=== PATIENT | male | born 1970 | race Caucasian/White ===

== ENCOUNTER 2016-12-03 18:03 | Emergency (ER) | payer MEDICAID ==
[2016-12-03 19:00] LABS: BASOPHILS 0.5 % (0.0-2.0); EOSINOPHILS 3.8 % (0-7); HEMATOCRIT 45.6 % (42.0-54.0); HEMOGLOBIN 15.9 g/dL (13.5-17.5); IMMATURE GRANULOCYTES 0.4 % (0-5); LYMPHOCYTES 30.5 % (15-50); MCH 32.2 pg (26.0-34.0); MCHC 34.9 g/dL (31.0-37.0); MCV 92.3 fL (80.0-100.0); MEAN PLATELET VOLUME 9.7 fL (7.4-10.4); NEUTROPHILS 57.8 % (40-80); PLATELET COUNT 232 10x3/uL (130-400); RBC 4.94 10x6/uL (4.20-6.10); RDW 12.4 % (11.5-14.5); WBC 10.6 10x3/uL (4.8-10.8)
[2016-12-03 19:14] LABS: ALBUMIN 4.4 g/dL (3.4-5.0); ALKALINE PHOSPHATASE 65 U/L (46-116); ALT (SGPT) 52 U/L (10-68); BILIRUBIN - TOTAL 0.53 mg/dL (0.2-1.3); CALC OSMOLALITY 275 mosm/kg (275-300); CALCIUM 9.4 mg/dL (8.5-10.1); CARBON DIOXIDE 30.1 mmol/L (21.0-32.0); CHLORIDE - SERUM 100 mmol/L (98-107); CREATININE - SERUM 1.1 mg/dL (0.6-1.3); GLUCOSE 119 mg/dL (74-106); POTASSIUM - SERUM 4.1 mmol/L (3.5-5.1); SODIUM 138 mmol/L (136-145); UREA NITROGEN 10 mg/dL (7-18); eGFR NON AFRICAN AMERICAN 77 mL/min (90-120)
[2016-12-03 19:56] LABS: CKMB 1.4 U/L (0.0-3.6); CREATINE KINASE 133 UL (21-232); TROPONIN-I < 0.017 ng/mL (0.000-0.060)
[2016-12-03 20:51] LABS: APPEARANCE CLEAR (CLEAR); BILIRUBIN NEGATIVE (NEGATIVE); COLOR YELLOW (YELLOW); GLUCOSE NEGATIVE (NEGATIVE); KETONE NEGATIVE (NEGATIVE); LEUKOCYTE ESTERASE NEGATIVE (NEGATIVE); NITRITE NEGATIVE (NEGATIVE); PROTEIN NEGATIVE (NEGATIVE); UROBILINOGEN NORMAL (NORMAL)
[2016-12-15 11:38] VITALS: BMI 40.2
== END 2016-12-03 21:16 | disposition home or self-care (01) ==
LOC: D.ER 18:03
PROVIDERS: Family Medicine; Nurse Practitioner Family
DX: R42 Dizziness and giddiness (principal); R07.9 Chest pain, unspecified; I10 Essential (primary) hypertension; I45.10 Unspecified right bundle-branch block

== ENCOUNTER 2016-12-15 11:01 | Outpatient (CLI) | payer MEDICAID ==
[~2016-12-15] VITALS: Ht 180.3 cm; Wt 130.9 kg
--- NOTE | ~2016-12-15 | HEMODYNAMI ---
PATIENT:JANICE MENDEZ MEDICAL RECORD: [id number] : 72 LOCATION:[facility] ADMISSION DATE: 12/15/16 Generatedon:12/15/201615:14 Patient name: JANICE MENDEZ Patient #: [id number] SSN: : 1970 Date of study: 12/15/2016 Page: Of Hemodynamic Procedure Report Patient Data Patient Demographics Procedure consent was obtained First Name: JANICE Gender: Male Last Name: VANESSA : 1970 Middle Initial: W Age: 46 year(s) Patient #: [id number] Race: Unknown Additional ID: [id number] Contact details [address]: [address] [place] [address] [address] State: [place] City: [place] Zip code: [address] Past Medical History Allergies: No known allergies Admission Admission Data Admission Date: 12/15/2016 Admission Time: 11:01 Lab Results Lab Result Date: 12/15/2016 Lab Result Time: 11:30 Biochemistry Name Units Result Min Max BUN mg/dl 9 --(*---)-- 7 18 Creatinine mg/dl 1 --(--*-)-- 0.6 1.3 CBC Name Units Result Min Max Hematocrit % 46.9 --(-*--)-- 42 54 Hemoglobin g/dl 16.7 --(---*)-- 13.5 17.5 Procedure Procedure Types Cath Procedure Diagnostic Procedure [facility] w/Coronaries Miscellaneous Procedures Moderate Sedation up to 30 minutes Peripheral Cath Diagnostic Procedure 4-Vessel Carotid Cervical Bilateral Procedure Description Procedure Date Procedure Date: 12/15/2016 Procedure Start Time: 14:52 Procedure End Time: 15:12 Procedure Staff Name Function Carl Johnson MD Performing Physician Emily Saldivar RT Scrub Raffi Leonardo RN Nurse test Nurse Willis Schmidt RT Monitor Procedure Data Cath Procedure Fluoroscopy Diagnostic fluoroscopy Total fluoroscopy Time: 4.4 time: 4.4 min min Diagnostic fluoroscopy Total fluoroscopy dose: 557 dose: 557 mGy mGy Contrast Material Contrast Material Type Amount (ml) Isovue 300 101 Entry Location Entry Primary Successful Side Size Upsize Upsize Entry Closure Succes sful Closure Location (Fr) 1 (Fr) 2 (Fr) Remarks Device Remarks Femoral Right 5 Fr Exoseal artery Estimated blood loss: 5 ml Diagnostic catheters Device Type Used For End Catheter Placement Cordis 5Fr JL 4.0 Procedure Catheter (MP) Cordis 5Fr 3DRC Catheter Procedure (MP) Cordis 4Fr JB3 catheter Procedure Cordis 5Fr Pigtail Procedure Catheter (MP) Procedure Complications No complications Procedure Medications Medication Administration Route Dosage Oxygen NC 2 l/min Heparin Flush Bag added to field 2 bags (1000units/500ml NS) 0.9% NaCl I.V. 100 ml/hr Fentanyl I.V. 50 mcg Versed I.V. 1 mg Fentanyl I.V. 50 mcg Versed I.V. 1 mg Fentanyl I.V. 50 mcg Fentanyl I.V. 50 mcg Hemodynamics Rest HGB: 16.7 (g/dl) Heart Rate: 58 (bpm) Pressure Samples Time Site Value (mmHg) Purpose Heart Use Rate(bpm) 15:05 LV 106/14,19 Snapshot 72 15:05 AO 117/67(88) Pullback 67 15:05 LV 108/15,20 Pullback 67 Gradients Valve Time Site 1 Site 2 Mean SEP/DFP Peak To Heart Use (mmHg) (sec/min) Peak Rate (mmHg) (bpm) Aortic 15:05 LV AO 0 15 0 67 108/15,20 117/67(88) Calculations Valve P-P Mean Valve Index Valve Source Name Gradient Area Flow (cm2) Aortic 0 0 0 0 Snapshots Pre Cath Intra NCS Post Cath Vital Signs Time Heart Resp SPO2 etCO2 OV5xior NIBP (mmHg) Rhythm Pain Sedation Rate (ipm) (%) (mmHg) (mmHg) Status Level (bpm) 14:31:46 54 18 96 0 0 134/88(100) NSR 0 (11) 10(A) , No pain 14:36:00 61 17 95 0 0 125/76(91) NSR 0 (11) 10(A) , No pain 14:40:18 62 19 95 0 0 117/73(89) NSR 0 (11) 10(A) , No pain 14:44:28 58 19 96 0 0 116/80(101) NSR 0 (11) 10(A) , No pain 14:48:40 59 19 95 0 0 119/78(95) NSR 0 (11) 10(A) , No pain 14:52:54 58 18 95 0 0 123/76(94) NSR 0 (11) 10(A) , No pain 14:57:08 61 17 94 0 0 121/77(91) NSR 0 (11) 9(A) , No pain 15:01:24 66 18 95 0 0 128/70(87) NSR 0 (11) 9(A) , No pain 15:05:40 68 16 95 0 0 114/67(94) NSR 0 (11) 9(A) , No pain 15:08:24 60 19 96 0 0 124/79(98) NSR 0 (11) 9(A) , No pain 15:12:40 58 15 92 0 0 123/72(94) NSR 0 (11) 9(A) , No pain Medications Time Medication Route Dose Verified Delivered Reason Notes Effec tiveness by by 14:31:09 Oxygen NC 2 Raffi Raffi Per l/min Jorden Leonardo RN physician RN 14:31:23 Heparin Flush added 2 Raffi Raffi used for Bag to bags Jorden Leonardo RN procedure (1000units/500ml field RN NS) 14:31:34 0.9% NaCl I.V. 100 Raffi Raffi Per ml/hr Jorden Leonardo RN physician RN 14:52:12 Fentanyl I.V. 50 Raffi Raffi for [facility] Jorden Leonardo RN sedation RN 14:52:20 Versed I.V. 1 mg Raffi Raffi for Jorden Leonardo RN sedation RN 14:53:50 Fentanyl I.V. 50 Raffi Raffi for yarelis Leonardo RN sedation RN 14:53:54 Versed I.V. 1 mg Raffi Raffi for Jorden Leonardo RN sedation RN 14:55:36 Fentanyl I.V. 50 Raffi Raffi for [facility] Jorden Leonardo RN sedation RN 15:00:34 Fentanyl I.V. 50 Raffi Raffi for [facility] Jorden Leonardo RN sedation laminator preforms Log Time Note 14:09:47 Raffi Leonardo RN sent for patient. Start room use. 14:19:49 Time tracking: Regular hours 14:19:54 Plan of Care:Hemodynamics will remain stable., Cardiac rhythm will remain stable., Comfort level will be maintained., Respiratory function will remain adequate., Patient/ family verbilizes understanding of procedure., Procedure tolerated without complication., Recovers from procedure without complications.. 14:24:01 Patient received from Pre/Post Procedure Room to CCL 1 Alert and oriented. Tansferred to table in Supine position. 14:24:03 Warm blankets applied, and daniel hugger turned on for patient comfort. 14:24:03 Correct patient and procedure confirmed by team. 14:24:05 Signed procedure consent form obtained from patient. 14:24:06 ECG and BP/O2 sat monitors applied to patient. 14:24:07 Full Disclosure recording started 14:30:43 Vital chart was started 14:31:09 Oxygen 2 l/min NC was administered by Raffi Leonardo RN; Per physician; 14:31:23 Heparin Flush Bag (1000units/500ml NS) 2 bags added to field was administered by Raffi Leonardo RN; used for procedure; 14:31:34 0.9% NaCl 100 ml/hr I.V. was administered by Raffi Leonardo RN; Per physician; 14:37:03 Baseline sample Acquired. 14:37:22 Rhythm: sinus rhythm 14:38:27 H&P Date Dictated: 12/11/2016 Within 30 days and on chart., H&P Addendum completed by physician on day of procedure. (MUST COMPLETE FOR ALL OUTPATIENTS). 14:38:29 Pre-procedure instructions explained to patient. 14:38:30 Pre-op teaching completed and patient verbalized understanding. 14:38:31 Family in waiting room. 14:38:33 Patient NPO since Midnight. 14:38:46 Patient allergic to No known allergies 14:38:48 Is the patient allergic to Iodine/contrast media? No. 14:38:51 Is patient on blood thinner?No 14:38:52 Patient diabetic? No. 14:38:55 Previous problem with sedation/anesthesia? No ? 14:38:56 Snore? Yes 14:38:57 Sleep apnea? Yes 14:38:58 Deviated septum? No 14:38:58 Opens mouth fully? Yes 14:38:59 Sticks out tongue? Yes 14:39:01 Airway obstruction? No ? 14:39:03 Dentures? No ? 14:40:19 Pre procedure: right dorsailis pedis pulse 2+ Normal; easily identifiable; not easily obliterated 14:40:22 Patient pain scale 0/10 ?. 14:40:28 IV patent on arrival in left forearm with 0.9% NaCl at [facility]. 14:42:03 Lab Result : BUN 9 mg/dl 14:42:03 Lab Result : Creatinine 1 mg/dl 14:42:03 Lab Result : Hemoglobin 16.7 g/dl 14:42:04 Lab Result : Hematocrit 46.9 % 14:42:06 Lab results completed and on chart. 14:42:09 Right groin area was prepped with chlora-prep and draped in sterile fashion 14:42:09 Alarms reviewed by R. N. 14:42:10 Sharps counted by scrub and verified by R.N. 14:42:12 Use device set Femoral Dx 14:42:15 Tegaderm 4 x 4 opened to sterile field. 14:42:16 Acist Manifold opened to sterile field. 14:42:16 Acist Hand Control opened to sterile field. 14:42:17 Acist Syringe opened to sterile field. 14:42:18 Bag Decanter opened to sterile field. 14:42:18 Medline Cath Pack opened to sterile field. 14:42:19 Terumo 5Fr Lockport Sheath opened to sterile field. 14:42:19 St Aristeo 260cm J .035 wire opened to sterile field. 14:42:20 Diagnostic Infinity 5Fr Multipack catheter opened to sterile field. 14:43:30 Zero performed for pressure channel P1 14:50:28 Physician arrived 14:50:29 --------ALL STOP TIME OUT------ 14:50:29 Final Timeout: patient, procedure, and site verified with staff and physician. All members of the team are in agreement. 14:50:31 Right groin site verified by team. 14:50:34 Physical assessment completed. ASA score P 2 - A patient with mild systemic disease as per Carl Johnsno MD. 14:50:36 Sedation plan: IV Moderate Sedation Versed, Fentanyl 14:52:12 Fentanyl 50 mcg I.V. was administered by Raffi Leonardo RN; for sedation; 14:52:20 Versed 1 mg I.V. was administered by Raffi Leonardo RN; for sedation; 14:52:25 Procedure started. 14:52:30 Local anesthetic to right femoral artery with Lidocaine 2% by Carl Johnson MD.INITIAL ACCESS ONLY 14:53:21 A 5 Fr sheath was inserted into the Right Femoral artery 14:53:50 Fentanyl 50 mcg I.V. was administered by Raffi Leonardo RN; for sedation; 14:53:54 Versed 1 mg I.V. was administered by Raffi Leonardo RN; for sedation; 14:55:02 A Cordis 5Fr JL 4.0 Catheter (MP) was advanced over the wire and used for Procedure. 14:55:36 Fentanyl 50 mcg I.V. was administered by Raffi Leonardo RN; for sedation; 14:55:36 LCA angiography performed. 14:56:15 Catheter removed. 14:56:21 A Cordis 5Fr 3DRC Catheter (MP) was advanced over the wire and used for Procedure. 14:57:30 RCA angiography performed. 14:57:34 Catheter removed. 14:58:44 Left carotid angiography performed. 15:00:18 Catheter removed. 15:00:34 Fentanyl 50 mcg I.V. was administered by Raffi Leonardo RN; for sedation; 15:01:45 A Cordis 4Fr JB3 catheter was advanced over the wire and used for Procedure. 15:03:12 [facility] FIRM 260CM glide wire opened to sterile field. 15:03:34 Right carotid angiography performed. 15:04:30 Catheter removed. 15:04:42 A Cordis 5Fr Pigtail Catheter (MP) was advanced over the wire and used for Procedure. 15:05:26 LV gram done using RANDHAWA 15:05:29 Injector settings: Ml/sec: 10, Volume: 20, 15:05:30 LV hemodynamics recorded. 15:05:37 EF : 55 % 15:06:52 Catheter removed. 15:07:00 Cordis 5Fr Exoseal opened to sterile field. 15:07:08 Sheath removed intact; hemostasis achieved with Exoseal to the Right Femoral artery. 15:07:10 Procedure ended.(Physican Out) 15:09:59 Fluoroscopy time 04.40 minutes. 15:10:02 Fluoroscopy dose: 557 mGy 15:10: Flurop Dose total: 557 15:10:06 Contrast amount:Isovue 300 101ml. 15:10:08 Sharps counted by scrub and verified by R.N. 15:10:11 Insertion/operative site no bleeding no hematoma. 15:10:13 Post-op/insertion site Right Femoral artery dressed using a 4 x 4 and Tegaderm. 15:10:17 Post right femoral artery:stable, soft, clean and dry 15:10:25 Post Procedure Pulses reassessed and unchanged 15:10:31 Post-procedure physical assessment completed. ASA score P 2 - A patient with mild systemic disease as per Carl Johnson MD. 15:10:34 Post procedure rhythm: unchanged. 15:11:14 Estimated blood loss: 5 ml 15:11:15 Post procedure instruction explained to patient.Patient verbalizes understanding. 15:11:16 Patient needs reinforcement of post procedure teaching. 15:11:35 Procedure type changed to Cath procedure, Diagnostic procedure, LHC, LHC w/Coronaries, Miscellaneous Procedures, Moderate Sedation up to 30 minutes, Peripheral Cath Diagnostic Procedure, 4-Vessel, Carotid Cervical Bilateral 15:12:02 Procedure and supply charges have been captured, reviewed, submitted and are correct. 15:12:10 Procedure Complication : No complications 15:12:13 Vital chart was stopped 15:12:16 See physician's report for complete and final results. 15:12:18 Report given to Pre/Post Procedure Room. 15:12:21 Patient transfered to Pre/Post Procedure Room with Stretcher. 15:12:26 Procedure ended. 15:12:26 Full Disclosure recording stopped 15:12:30 End room use (Document Last) Device Usage Item Name Manufacture Quantity Catalog Hospital Part Current Minimal Lo t# / Number Charge Number Stock Stock Serial# Code Tegaderm 4 1 1626W [id number] 379607 [id number] 5 x 4 Acist Acist 1 73950 291711 242681 606090 5 Manifold [employer] Inc Acist Hand Acist 1 75286 938476 369744 377804 5 Control [employer] Inc Acist Acist 1 72389 959280 736983 288679 20 Syringe Medical [employer] Inc Bag Microtek 1 2002S 1978554 86470 709155 5 Leads Direct. Medline Cardinal 1 [id number] 103933 77439 568095 5 Epiclist Terumo 5Fr Terumo 1 [id number] 323566 623879 513626 [address] St Aristeo 1 538940 704152 998194 261373 30 260cm J .035 wire Diagnostic Cardinal 1 [id number] 479218 26002 706620 30 Infinity Health 5Fr Multipack catheter Cordis 5Fr Cardinal 1 273917 5 JL 4.0 Health Catheter (MP) Cordis 5Fr Cardinal 1 214135 5 3DRC Health Catheter (MP) Cordis 4Fr Cardinal 1 131-783 771323 893643 898254 5 JB3 Health catheter [facility] 1 [id number] 380963 227380 [address] FIRM 260CM glide wire Cordis 5Fr Cardinal 1 625889 5 Pigtail Health Catheter (MP) Cordis 5Fr Cardinal 1 EX500 354048 604969 684109 10 [facility] Zbird Signature Audit Gibson Stage Time Signature Unsigned Intra-Procedure 12/15/2016 Willis Schmidt 3:14:45 PM RT(R) Signatures Monitor : Willis Schmidt RT Signature : Date : Time : [id number] [place] [address]
[2016-12-15] MEDS ORDERED: TENORMIN50 MG PO (11:35)
[2016-12-15] MEDS ORDERED: NORVASC10 MG PO (11:36)
[2016-12-15] MEDS ORDERED: ZESTORETIC 20-1 EACH PO (11:36)
[2016-12-15] MEDS ORDERED: ZOCOR10 MG PO (11:37)
[2016-12-15 11:38] VITALS: Ht 180.3 cm; Wt 130.9 kg
[2016-12-15 12:23] LABS: CALC OSMOLALITY 268 mosm/kg (275-300); CARBON DIOXIDE 24.2 mmol/L (21.0-32.0); CHLORIDE - SERUM 97 mmol/L (98-107); GLUCOSE 132 mg/dL (74-106); POTASSIUM - SERUM 4.1 mmol/L (3.5-5.1); SODIUM 134 mmol/L (136-145); UREA NITROGEN 9 mg/dL (7-18); eGFR NON AFRICAN AMERICAN 86 mL/min (90-120)
[2016-12-15 12:37] LABS: BASOPHILS 0.4 % (0.0-2.0); EOSINOPHILS 3.7 % (0-7); HEMATOCRIT 46.9 % (42.0-54.0); HEMOGLOBIN 16.7 g/dL (13.5-17.5); IMMATURE GRANULOCYTES 0.4 % (0-5); LYMPHOCYTES 26.9 % (15-50); MCH 32.4 pg (26.0-34.0); MCHC 35.6 g/dL (31.0-37.0); MCV 91.1 fL (80.0-100.0); MEAN PLATELET VOLUME 10.4 fL (7.4-10.4); MONOCYTES 8.3 % (2-11); NEUTROPHILS 60.3 % (40-80); PLATELET COUNT 231 10x3/uL (130-400); RBC 5.15 10x6/uL (4.20-6.10); RDW 12.2 % (11.5-14.5); WBC 11.8 10x3/uL (4.8-10.8)
--- NOTE | 2016-12-15 16:47 | NUR ---
1545-RIGHT GROIN- CDI, NO HEMATOMA OR BLEEDING NOTED 1615-NO CHANGE IN RIGHT GROIN, AT SIDE
--- NOTE | 2016-12-16 08:42 | OP ---
PATIENT NAME: JANICE MENDEZ MEDICAL RECORD: [id number] :72 LOCATION:D.[facility] ADMISSION DATE: SURGEON: MOI REGAN MD DATE OF OPERATION: 12/15/2016 PROCEDURE: Left heart catheterization, selective coronary angiography, right femoral artery approach. CATHETERS: A 5-Indonesian sheath, 5/4 left and right Marcin, 5/4 pig. The procedure was well tolerated and the patient returned to the encarnacion. Sheath removed. ExoSeal device placed. FINDINGS: Left ventriculography in 30-degree RANDHAWA view, normal wall motion and normal systolic function. CORONARY ANATOMY: Left main: Left main is free of disease. LAD: Free of disease in the diagonal system. CIRCUMFLEX: Free of disease in the marginal system. RIGHT CORONARY ARTERY: Dominant artery, gives rise to PDA, free of disease. IMPRESSION: Normal left ventricular systolic function. Normal coronary anatomy. TRANSINT:[id number] Voice Confirmation ID: [id number] DOCUMENT ID: [id number] MOI REGAN MD at 0842 CC: [id number] DICTATION DATE: 12/15/16 151 [employer] BR[employer]GE TECHNICIAN: 12/15/16 204 DEP CLI 12/15/16 [id number] [place] [address]
--- NOTE | 2016-12-16 08:42 | OP ---
PATIENT NAME: JANICE MENDEZ MEDICAL RECORD: [id number] :72 LOCATION:D.CAT ADMISSION DATE: SURGEON: MOI REGAN MD DATE OF OPERATION: 12/15/2016 PROCEDURE: Four vessel arteriography. DESCRIPTION: Using indwelling sheath from diagnostic coronary angiography, the common carotids were cannulated in selective fashion. FINDINGS: RIGHT SYSTEM: Right common carotid is a smooth-walled vessel, free of disease. Right ____ carotid is a smooth-walled vessel, free of disease. Right internal carotid, smooth-walled vessel, free of disease. LEFT SYSTEM: Left common carotid smooth-walled vessel, free of disease. Left internal carotid smooth-walled vessel, free of disease and left external carotid is a smooth-walled vessel, free of disease. IMPRESSION: Normal 4-vessel arteriography without evidence of atherosclerotic disease. TRANSINT:[id number] Voice Confirmation ID: [id number] DOCUMENT ID: [id number] MOI REGAN MD at 0842 CC: [id number] DICTATION DATE: 12/15/16 151 REGISTERED DENTAL HYGIENIST: 12/15/16 2112 DEP CLI 12/15/16 [address] [place] [address]
== END 2016-12-15 17:30 | disposition home or self-care (01) ==
LOC: D.CATH 11:01
PROVIDERS: Internal Medicine Interventional Cardiology
DX: I20.9 Angina pectoris, unspecified (principal)

== ENCOUNTER → 2020-12-02 06:49 | Outpatient (CLI) | payer BC ==
[2016-12-15 11:38] VITALS: BMI 40.2
[~2020-12-02 06:49] MED LIST: NORVASC10 MG PO; TENORMIN50 MG PO; ZESTORETIC 20-1 EACH PO; ZOCOR10 MG PO
== END | disposition home or self-care (01) ==
LOC: D.US 06:49
PROVIDERS: ATTEND Internal Medicine Interventional Cardiology
DX: I71.4 Abdominal aortic aneurysm, without rupture (principal)